=== PATIENT | female | born 1955 | race Asian ===

== ENCOUNTER 2018-12-28 09:53 | Day surgery (SDC) | payer OTHER | END 2018-12-28 10:55 | disposition home or self-care (01) | LOC: OR 09:53 | PROC: 3E0R33Z Introduction of Anti-inflammatory into Spinal Canal, Percutaneous Approach (ICD-10-PCS; principal; 2018-12-28) | PROC: B01BYZZ Fluoroscopy of Spinal Cord using Other Contrast (ICD-10-PCS; 2018-12-28) | DX: M51.17 Intervertebral disc disorders with radiculopathy, lumbosacral region (principal) | CPT/HCPCS: J1100; Q9966 ==

== ENCOUNTER 2019-04-11 13:45 | Day surgery (SDC) | payer OTHER | END 2019-04-11 14:40 | disposition home or self-care (01) | LOC: OR 13:45 | PROC: 3E0R33Z Introduction of Anti-inflammatory into Spinal Canal, Percutaneous Approach (ICD-10-PCS; principal; 2019-04-11) | PROC: B01BYZZ Fluoroscopy of Spinal Cord using Other Contrast (ICD-10-PCS; 2019-04-11) | DX: M51.16 Intervertebral disc disorders with radiculopathy, lumbar region (principal) | CPT/HCPCS: J1020; J2001 ==

== ENCOUNTER 2020-02-20 09:37 | Day surgery (SDC) | payer OTHER | END 2020-02-20 14:20 | disposition home or self-care (01) | LOC: OR 09:37 | PROC: 3E0R33Z Introduction of Anti-inflammatory into Spinal Canal, Percutaneous Approach (ICD-10-PCS; principal; 2020-02-20) | PROC: B01BYZZ Fluoroscopy of Spinal Cord using Other Contrast (ICD-10-PCS; 2020-02-20) | DX: M51.16 Intervertebral disc disorders with radiculopathy, lumbar region (principal) | CPT/HCPCS: J1020; J2001 ==